=== PATIENT | female | born 1975 | race Caucasian/White ===

== ENCOUNTER 2021-08-19 02:28 | Day surgery (SDC) | payer OTHER, SELFPAY ==
[2021-08-14 15:13] VITALS: BMI 35.5
--- NOTE | 2021-08-14 15:22 | PC.NURSE ---
-Report to the Outpatient Waiting Room, entrance under the green pavilion located off [facility], at time 0615 on date 08/14/21. OR Time: 0815. - You and your visitor will be asked a series of questions to screen for COVID 19 for your protection. - Only one visitor is allowed at this time. - The patient visitor is requested to leave or wait in car when not with patient. - A mask is required within the hospital. Patients may have clear liquids (water, carbonated beverages, clear teas, apple juice) until 3 hours prior to surgery with a maximum of 20 ounces. - No food from midnight until time of surgery Take the following medications with a SIP of water the morning of surgery: ____N/A Medications to discontinue per physician N/A Date to take last dose Please no make-up, nail estonian, hairspray, perfume, deodorant, or body powder the day of surgery. No jewelry (including any body piercings) or valuables the day of surgery, leave them at home. Please take a shower or bath the night before, or the morning of, surgery with an antibacterial soap. Wear comfortable, loose fitting clothing. - Jewelry must be removed prior to entering the operating room. Rings and piercings that are not removed may be cut off. - The hospital will not accept responsibility for valuables. - Please leave all valuables, including medications, at home the day of surgery. If you are going home after surgery, a licensed ross carrier driver must drive you home. - NO public transportation without another adult. - We recommend that an adult stay with you for 24 hours following discharge. - We also recommend that you do not drive, make important decision, drink alcoholic beverages, or take any drugs that were not prescribed by your health care provider for at least 24 hours after your discharge time. Follow any additional instructions given to you from your surgeon. If you or anyone in your household have experienced Covid symptoms in the past week, please notify your surgeon or the nurse liaison at the phone number below for possible testing. Telephone instructions given to patient and asked if any additional questions and then verbalized understanding. Patient advised to call surgeon office or pre surgery nurse liaison [phone] if any additional questions.
[2021-08-19] MEDS: ACETAMINOPHEN 500 MG TABLET 1000 MG PO (06:56)
[2021-08-19] MEDS: LACTATED RINGERS 1,000 ML 30 ML IV CONT (07:07)
[2021-08-19 07:24] VITALS: BP 139/81; PULSE 75; RESP 16; TEMP 36.3; O2SAT 100
--- NOTE | 2021-08-19 07:28 | WPDHPUPDATE1 ---
History and Physical Update Update Date/Time: 08/19/21 07:28 History and Physical has been reviewed, including an updated exam of the patient. There are NO changes in the patient's condition. Risks, benefits, and alternatives have been discussed and questions answered. Patient agrees to proceed with procedure.
--- NOTE | 2021-08-19 07:29 | PM.HPGS ---
History of Present Illness History of Present Illness Consent: Risks, benefits, and alternatives have been discussed and questions answered. Patient agrees to proceed with procedure. Chief complaint: Menorrhagia Narrative: Viviana Boyle is a 46 year old female with irregular and heavy cycles with increased cramping since May. Ultrasound revealed enlarged uterus with fibroids. The largest is intramural in several are subserosal. By ultrasound none are submucosal. Recommend proceed with workup of bleeding with hysteroscopy with D&C. Risks of infection, bleeding, perforation, and fluid imbalance were reviewed. Possible pathology was discussed. Patient voices understanding and agrees to proceed. Review of Systems Review of Systems: not repeated day of surgery; patient states no changes in status PMFSH Past Medical History Medical History (Updated 08/19/21 @ 07:33 by Brie Chi MD) Depression (normal spontaneous vaginal delivery) X3 Surgical History Surgical History (Updated 08/19/21 @ 07:31 by Brie Chi MD) Status post breast reduction 1995 and 2005 Status post laparoscopic cholecystectomy Status post tubal ligation Social History Social History Smoking status: Never smoker Second hand tobacco smoke exposure: No Alcohol intake: current Drinks per week: 1 Substance use: never Living arrangements: with family Spiritual care concerns: No Meds Home Medications and Allergies Home Medications Medication Instructions Recorded Confirmed Type famotidine 40 mg tablet 40 mg PO DAILY PRN Gastric Reflux 08/14/21 08/19/21 History metoclopramide HCl 10 mg tablet 10 mg PO TID PRN Gastric Reflux 08/14/21 08/19/21 History (Reglan) topiramate 100 mg tablet 100 mg PO DAILY ASSIST WITH WEIGHT 08/14/21 08/19/21 History LOSS Allergies Allergy/AdvReac Type Severity Reaction Status Date / Time No Known Allergies Allergy Verified 08/19/21 07:23 Vital Signs Vital Signs - 24 hr 08/19/21 07:24 Temperature 97.4 F L Pulse Rate 75 Respiratory Rate 16 Blood Pressure 139/81 Pulse Oximetry 100 Oxygen Delivery Room Air Exam Const: General: healthy appearing and alert Orientation/consciousness: patient oriented x3 Resp: Effort & Inspection: normal respiratory effort Auscultation: clear to auscultation bilaterally Cardio: Rate: regular rate Rhythm: regular rhythm GI: GI Palp: Yes Soft to palpation, No Tenderness to palpation present (GI) and Yes Other GI palpation findings present (Fundus at U -2) : External Female Exam: normal external appearance Speculum Exam - Vagina: normal appearance of the vagina and normal vaginal discharge Speculum Exam - Cervix: normal appearance of the cervix Bimanual exam- vagina & uterus: consistency normal and enlarged (18 week size) Bimanual Exam- Adnexa, other: normal adnexae and No adnexal tenderness Neuro: General: patient oriented x3 Assessment and Plan Assessment and plan (1) Menorrhagia: Code(s): N92.0 - Excessive and frequent menstruation with regular cycle Status: Acute Assessment and Plan: Plan to proceed with D&C hysteroscopy
--- NOTE | 2021-08-19 07:37 | P.PNAN_ITS ---
Anes - Initial Pre Proc Eval Procedure: Operation Date: 08/19/21 08:15 Proposed Procedures p Hysteroscopy with Dilation and Curettage - Brie Chi MD Date/Time: 08/19/21 07:37 Surgeon: Brie Chi MD Pre Op Diagnosis: Menorrhagia Patient Data Age: 46 Gender: F Height: 1.5 m Weight: 82.4 kg Last Vital Signs Temp 36.3 C L 08/19/21 07:24 Pulse 75 08/19/21 07:24 Resp 16 08/19/21 07:24 BP 139/81 08/19/21 07:24 Pulse Ox 100 08/19/21 07:24 O2 Del Method Room Air 08/19/21 07:24 Allergies Allergy/AdvReac Type Severity Reaction Status Date / Time No Known Allergies Allergy Verified 08/19/21 07:23 Home Medications Medication Instructions Recorded Confirmed Type famotidine 40 mg tablet 40 mg PO DAILY PRN Gastric Reflux 08/14/21 08/19/21 History metoclopramide HCl 10 mg tablet 10 mg PO TID PRN Gastric Reflux 08/14/21 08/19/21 History (Reglan) topiramate 100 mg tablet 100 mg PO DAILY ASSIST WITH WEIGHT 08/14/21 08/19/21 History LOSS Patient hx anesthesia problems: none Family hx anesthesia problems: none Results Review: All pre-operative results and documents have been reviewed as part of the pre- operative evaluation. [facility] Past Medical History Medical History Depression GERD (gastroesophageal reflux disease) Surgical History Surgical History Status post breast reduction 1995 and 2005 Status post laparoscopic cholecystectomy Status post tubal ligation Social History Social History Smoking status: Never smoker Second hand tobacco smoke exposure: No Alcohol intake: current Drinks per week: 1 Substance use: never Living arrangements: with family Spiritual care concerns: No Anes - Eval Final PreProcedure Day of Procedure 08/19/21 07:37 Patient weight: obese Heart: regular rate and rhythm Lungs: clear to auscultation Airway: Mallampati scale class II Neurological: alert and oriented Last oral intake: >/= 8 hours ASA classification: II Emergent: no Anesthetic plan: proceed Anesthesia type and monitoring: general GIVS and standard monitoring Results Review: All pre-operative results and documents have been reviewed as part of the pre- operative evaluation. Informed Consent: The patient's anesthetic plan and its attendant risks and benefits were discussed with the patient/family/POA. Questions were solicited and answers provided to the satisfaction of the patient/family/POA.
[2021-08-19] MEDS: LIDOCAINE HCL 1% PF 30 ML VIAL INFILTRATE (08:35)
--- NOTE | 2021-08-19 08:36 | P.OP_ITS ---
Procedure Note - Detailed Date of Procedure 08/19/21 Pre-op Diagnosis Menorrhagia Post-op Diagnosis Same Procedure Performed D&C hysteroscopy Surgeon Brie Chi MD Anesthesia MAC and Local Findings Uterus sounds to 12cm and appears grossly normal. There is some shaggy secretory appearing endometrium at the utero cervical junction Description of Procedure The patient was taken to the operating room and placed under anesthesia dorsal lithotomy position. She was prepped and draped in usual sterile fashion. [place] speculum was placed in the vagina and the cervix is grasped on the anterior lip with a tenaculum. The cervix is serially injected in each quadrant with 1% lidocaine. The uterus is sounded to 12cm. The cervix is serially dilated with Hegar to an 8. The diagnostic hysteroscope was placed with the above-stated findings. The hysteroscope was removed and the medium sharp curette used to curette the endometrium until a good uterine cry was noted in all areas. The instruments are removed. Patient is awakened from anesthesia and taken to recovery in stable condition. Sponge, needle, and instrument counts are correct per the OR staff. Estimated Blood Loss 5 Drains No Packing No Pathology Yes (Endometrial curettings) Complications No immediate complications Condition Stable Disposition PACU
[2021-08-19 08:39] VITALS: BP 136/86; PULSE 85; RESP 16; O2SAT 100
[2021-08-19 09:00] VITALS: BP 139/84; PULSE 75; RESP 16; O2SAT 97
[2021-08-19] MEDS: oxyCODONE HCL (*CRX) 5 MG TAB IR PO (09:13)
[2021-08-19 09:30] VITALS: BP 145/81; PULSE 64; RESP 16
[2021-08-19 09:55] VITALS: BP 145/79; PULSE 67; RESP 16
== END 2021-08-19 10:04 | disposition home or self-care (01) ==
PROVIDERS: Visit Provider Obstetrics & Gynecology Gynecology
PROC: 0U5B8ZZ Destruction of Endometrium, Via Natural or Artificial Opening Endoscopic (ICD-10-PCS; CPT 58563; principal; 2021-08-19 08:15)
DX: N92.0 Excessive and frequent menstruation with regular cycle (principal)
CPT/HCPCS: 58558; 88305; A9270; J1885; J2250; J2704; J3010; J7120

== ENCOUNTER 2022-01-20 11:10 | Inpatient (IN) | payer OTHER, SELFPAY ==
[2022-01-15 15:09] VITALS: BMI 37.5
--- NOTE | 2022-01-15 15:14 | PC.NURSE ---
Report to the Outpatient Waiting Room, entrance under the green pavilion located off [facility], at time 0600 on date 01/20/22. Planned Procedure Time: 0730. Time changes happen often and if your time is changed the preop area will call you the afternoon before. - You and your visitor will be asked to self-screen and do not enter if you have any COVID symptoms. - We encourage only one visitor and NO visitors under age 16 are allowed at this time. Your visitor will receive communication by the phone number that is given day of service. - The patient visitor is requested to social distance or may leave the building when not with patient due to restrictions. - A mask is OPTIONAL within the hospital. Patients may have clear liquids (water, carbonated beverages, clear teas, apple juice) until 3 hours prior to surgery with a maximum of 20 ounces. - No food from midnight until time of surgery Take the following medications with a SIP of water the morning of surgery: LAMOTRIGINE, CYMBALTA, REGLAN IF NEEDED Medications to discontinue per physician: N/A Date to take last dose: N/A Please no make-up, nail luxembourgish, hairspray, perfume, deodorant, or body powder the day of surgery. No jewelry (including any body piercings) or valuables the day of surgery, leave them at home. Please take a shower or bath the night before, or the morning of, surgery with an antibacterial soap. Wear comfortable, loose fitting clothing. - Jewelry must be removed prior to entering the operating room. Rings and piercings that are not removed may be cut off. - The hospital will not accept responsibility for valuables. - Please leave all valuables, including medications, at home the day of surgery. If you are going home after surgery, a licensed sales route driver must drive you home. - NO public transportation without another adult. - We recommend that an adult stay with you for 24 hours following discharge. - We also recommend that you do not drive, make important decision, drink alcoholic beverages, or take any drugs that were not prescribed by your health care provider for at least 24 hours after your discharge time. Follow any additional instructions given to you from your surgeon. If you or anyone in your household have experienced Covid symptoms in the past week, please notify your surgeon or the nurse liaison at the phone number below for possible testing. Telephone instructions given to PT - AGNES ABARCA and asked if any additional questions and then verbalized understanding. Patient advised to call surgeon office or pre surgery nurse liaison [phone] if any additional questions.
[2022-01-20] VITALS (17 sets, daily range): BP systolic 116–151; BP diastolic 72–95; PULSE 87–109; RESP 12–19; TEMP 36.5–37.2; O2SAT 93–100
[2022-01-20] MEDS: LACTATED RINGERS 1,000 ML 30 ML IV CONT ×2 (07:00→09:21)
[2022-01-20] MEDS: KETOROLAC 15 MG/ML VIAL (*BKC) IV PUSH (07:06)
[2022-01-20] MEDS: ACETAMINOPHEN 500 MG TABLET 1000 MG PO ×2 (07:06→15:39)
--- NOTE | 2022-01-20 07:14 | WPDHPUPDATE1 ---
History and Physical Update Update Date/Time: 01/20/22 07:14 History and Physical has been reviewed, including an updated exam of the patient. There are NO changes in the patient's condition. Risks, benefits, and alternatives have been discussed and questions answered. Patient agrees to proceed with procedure.
--- NOTE | 2022-01-20 07:14 | PM.HPGS ---
History of Present Illness History of Present Illness Consent: Risks, benefits, and alternatives have been discussed and questions answered. Patient agrees to proceed with procedure. Chief complaint: menorrhagia, enlarged uterus Narrative: Viviana Boyle is a 46 year old female with menorrhagia and enlarged fibroid uterus. D&C hysteroscopy was benign. Due to the large size of the uterus the patient has elected to proceed with hysterectomy. The uterus is at U -2 and is very globular filling the entire pelvis. Decision was made to proceed with total abdominal hysterectomy as well as bilateral salpingectomy. Risks of infection, bleeding, injury to internal organs ( bowel, bladder, ureters ), deep vein thrombosis, and general anesthesia were reviewed. Patient voices understanding and agrees to proceed. Review of Systems Gastrointestinal: Gastrointestinal: Reports constipation Genitourinary: Genitourinary: Reports menorrhagia, Reports dyspareunia and Reports urinary incontinence ( occasional stress incontinence) Comments: Pelvic pressure Musculoskeletal: Musculoskeletal: Reports back pain PMFSH Past Medical History Medical History (Updated 01/20/22 @ 07:22 by Brie Chi MD) Depression PTSD GERD (gastroesophageal reflux disease) (normal spontaneous vaginal delivery) x3 Surgical History Surgical History (Updated 01/20/22 @ 07:18 by Brie Chi MD) History of abdominoplasty History of hysteroscopy Status post breast reduction 1995 and 2005 Status post laparoscopic cholecystectomy Status post tubal ligation Social History Social History Smoking status: Never smoker Second hand tobacco smoke exposure: No Alcohol intake: current Drinks per week: 1 Alcohol use details: RARE Substance use: never Substance use type: does not use Living arrangements: with family Spiritual care concerns: No Meds Home Medications and Allergies Home Medications Medication Instructions Recorded Confirmed Type famotidine 40 mg tablet 40 mg PO DAILY PRN Gastric Reflux 08/14/21 01/15/22 History metoclopramide HCl 10 mg tablet 10 mg PO TID PRN Gastric Reflux 08/14/21 01/15/22 History (Reglan) duloxetine 60 mg capsule,delayed 60 mg PO DAILY 01/15/22 01/15/22 History release lamotrigine 25 mg tablet 25 mg PO DAILY 01/15/22 01/15/22 History norethindrone 1 mg-ethinyl 1 tablet PO DAILY 01/15/22 01/15/22 History estradiol 20 mcg (24)-iron 75 mg (4) tablet (Etelvina 24 Fe) trazodone 50 mg tablet 50 mg PO HS PRN Insomnia 01/15/22 01/15/22 History Allergies Allergy/AdvReac Type Severity Reaction Status Date / Time No Known Allergies Allergy Verified 01/15/22 15:07 Exam Const: General: healthy appearing and alert Orientation/consciousness: patient oriented x3 Resp: Effort & Inspection: normal respiratory effort GI: GI Palp: Yes Soft to palpation, No Tenderness to palpation present (GI) and No Palpable mass present : External Female Exam: normal external appearance Speculum Exam - Vagina: normal appearance of the vagina and normal vaginal discharge Speculum Exam - Cervix: normal appearance of the cervix Bimanual exam- vagina & uterus: enlarged ( approximately 18 week size at U -2) Bimanual Exam- Adnexa, other: normal adnexae and No adnexal tenderness Neuro: General: patient oriented x3 Assessment and Plan Assessment and plan (1) Menorrhagia: Code(s): N92.0 - Excessive and frequent menstruation with regular cycle Status: Acute Assessment and Plan: plan is to proceed with JABARI BS (2) Fibroids: Code(s): D21.9 - Benign neoplasm of connective and other soft tissue, unspecified Status: Acute
--- NOTE | 2022-01-20 07:19 | WPDANESEPPF ---
Anes - Initial Pre Proc Eval Procedure: Operation Date: 01/20/22 07:30 Proposed Procedures p Total Abdominal Hysterectomy with Bilateral Salpingectomy - Brie Chi MD Date/Time: 01/20/22 07:19 Surgeon: Brie Chi MD Pre Op Diagnosis: menorrhagia, enlarged uterus Patient Data Age: 46 Gender: F Height: 1.5 m Weight: 84.37 kg Allergies Allergy/AdvReac Type Severity Reaction Status Date / Time No Known Allergies Allergy Verified 01/15/22 15:07 Home Medications Medication Instructions Recorded Confirmed Type famotidine 40 mg tablet 40 mg PO DAILY PRN Gastric Reflux 08/14/21 01/15/22 History metoclopramide HCl 10 mg tablet 10 mg PO TID PRN Gastric Reflux 08/14/21 01/15/22 History (Reglan) duloxetine 60 mg capsule,delayed 60 mg PO DAILY 01/15/22 01/15/22 History release lamotrigine 25 mg tablet 25 mg PO DAILY 01/15/22 01/15/22 History norethindrone 1 mg-ethinyl 1 tablet PO DAILY 01/15/22 01/15/22 History estradiol 20 mcg (24)-iron 75 mg (4) tablet (Etelvina 24 Fe) trazodone 50 mg tablet 50 mg PO HS PRN Insomnia 01/15/22 01/15/22 History Laboratory Tests 01/20/22 07:07 Hgb Pending Hct Pending Patient hx anesthesia problems: none Family hx anesthesia problems: none Results Review: All pre-operative results and documents have been reviewed as part of the pre-operative evaluation. [facility] Past Medical History Medical History Depression GERD (gastroesophageal reflux disease) (normal spontaneous vaginal delivery) x3 Surgical History Surgical History History of abdominoplasty History of hysteroscopy Status post breast reduction 1995 and 2005 Status post laparoscopic cholecystectomy Status post tubal ligation Social History Social History Smoking status: Never smoker Second hand tobacco smoke exposure: No Alcohol intake: current Drinks per week: 1 Alcohol use details: RARE Substance use: never Substance use type: does not use Living arrangements: with family Spiritual care concerns: No Anes - Eval Final PreProcedure Day of Procedure 01/20/22 07:19 Patient weight: obese Heart: regular rate and rhythm Lungs: clear to auscultation Airway: Mallampati scale class II Neurological: alert and oriented Last oral intake: >/= 8 hours ASA classification: III Emergent: no Anesthetic plan: proceed Anesthesia type and monitoring: general ETT and standard monitoring Results Review: All pre-operative results and documents have been reviewed as part of the pre-operative evaluation. Informed Consent: The patient's anesthetic plan and its attendant risks and benefits were discussed with the patient/family/POA. Questions were solicited and answers provided to the satisfaction of the patient/family/POA.
[2022-01-20 07:20] LABS: Hematocrit 40.3 % (37.0-47.0); Hemoglobin 12.8 g/dL (12.0-15.0)
[2022-01-20] MEDS: ceFAZolin 2 GM/D5W 50 ML 2 GM/50 ML BAG IVPB (07:26)
--- NOTE | 2022-01-20 08:59 | W.PM.PROC2 ---
Procedure Note - Detailed Date of Procedure 01/20/22 Pre-op Diagnosis menorrhagia, enlarged uterus Post-op Diagnosis Same Procedure Performed Total abdominal hysterectomy with bilateral salpingectomy Surgeon Brie Chi MD Anesthesia General Findings enlarged fibroid uterus to 2cm below the umbilicus; normal-appearing tubes and of Description of Procedure The patient is taken to the operating room and placed under anesthesia in the dorsal supine position. She was prepped and draped in the usual sterile fashion. A Pfannenstiel skin incision was made with a scalpel and carried down to the underlying layer of fascia which was nicked in the midline and extended laterally. Ochsner was used to tent the fascia which was then dissected off using sharp and blunt dissection. The peritoneum was tented and entered with a Peon. The incision is extended with blunt traction. The bowel was packed away using moist laparotomy sponges and the Rufina is placed. The uterus is grasped on the cornua with large Peons. The round ligaments were doubly ligated with 0 Vicryl. The round ligament is incised and the anterior leaf of the broad ligament incised meeting in the midline. The utero-ovarian ligament is isolated by creating a window in the posterior leaf of the broad ligament. The tube is brought up with a Clarkridge to the proximal side and the pedicle doubly clamped with Z clamps, transected, and ligated with 0 Vicryl. The uterine vessels are skeletonized, clamped with Z clamps, transected, and suture ligated with 0 Vicryl. The cardinal and uterosacral ligaments are serially clamped, transected, and suture ligated with 0 Vicryl. The uterosacral ligaments were tagged for future use. The vaginal cuff is incised in the midline with a scalpel. The vaginal cuff was grasped with an Allis clamp anteriorly and the specimen amputated using Dl scissors and grasping the vaginal cuff anteriorly and posteriorly as the amputation is occurring. The vaginal cuff was then closed using 0 Vicryl in a running locked fashion tying each angle to the ipsilateral uterosacral ligaments. The left ovarian peritoneum is noted to be oozing and this is suture ligated with 0 Vicryl in a running fashion. Good hemostasis was then noted. The pelvis is irrigated and all pedicles and the vaginal cuff were noted to be hemostatic. The sponges and instruments are then removed. The fascia was closed using 0 Vicryl in a running fashion. Subcutaneous tissues were irrigated and made hemostatic using Bovie cautery. Due to her prior abdominal plasty there is tension on the skin therefore the subcutaneous tissues are closed with 3-0 plain in a running fashion. Skin is closed using 4-0 Monocryl in a subcuticular fashion. Dermaflex was placed over the incision. Sponge, needle, and instrument counts are correct per the OR staff. The patient is awakened from anesthesia and taken recovery in stable condition. Estimated Blood Loss 150 Drains Yes ( Faye catheter) Packing No Pathology Yes ( uterus into) Complications No immediate complications Condition Stable Disposition PACU
--- NOTE | 2022-01-20 09:06 | PM.DS ---
DS: Admitting Diagnosis Discharge Date 01/22/22 Admitting Diagnosis menorrhagia with enlarged fibroid uterus DS: Discharge Diagnosis Discharge Diagnosis (1) Fibroids: Code(s): D21.9 - Benign neoplasm of connective and other soft tissue, unspecified Status: Acute (2) Menorrhagia: Code(s): N92.0 - Excessive and frequent menstruation with regular cycle Status: Acute (3) S/P JABARI (total abdominal hysterectomy): Code(s): Z90.710 - Acquired absence of both cervix and uterus Status: Acute DS: Summary Hospital Course Hospital Course: At the time of discharge the patient is tolerating a regular diet, voiding, and ambulating. Status at Discharge Functional status at discharge: independent ambulation Overall status at discharge: patient is progressing back to baseline Time Spent with Patient Time attestation: Total time spent providing and/or coordinating discharge services: DS: Data Data Completed and Pending Pending studies at discharge: Pending at discharge 01/20/22 08:55 Surgical [PTH] Routine Labs on day of discharge: Labs from last 24 hours 01/20/22 01/20/22 07:07 07:07 Hgb 12.8 Hct 40.3 Blood Type Pending Antibody Screen Pending Discharge Plan Discharge Attending physician on discharge: Brie Chi Discharging Clinician: Brei Chi Anticipated Discharge Date/Time: 01/22/22 07:49 Patient Disposition: Home, Self-Care Activity: may shower, may drive after 2 weeks and pelvic rest Diet: regular Wound Care Instructions: incision open to air Patient Instructions: Hysterectomy (DC) Stand Alone Forms: General Discharge Instructions Follow-up/Referrals: Brie Chi MD [Physician] - Keep Reg. Scheduled Appt. Discharge Medications: New hydrocodone-acetaminophen 5-325 mg tablet 1 tablet PO Q4H PRN (Reason: pain) Qty: 20 0RF Continued trazodone 50 mg tablet 50 mg PO HS PRN (Reason: Insomnia) lamotrigine 25 mg tablet 25 mg PO DAILY duloxetine 60 mg capsule,delayed release(DR/EC) 60 mg PO DAILY famotidine 40 mg tablet 40 mg PO DAILY PRN (Reason: Gastric Reflux) metoclopramide HCl [Reglan] 10 mg tablet 10 mg PO TID PRN (Reason: Gastric Reflux) Discontinued Etelvina mg-20 mcg (24)/75 mg (4) tablet 1 tablet PO DAILY Date of admission: 01/20/22 11:10 Primary Care Provider: ThaoKala Admitting Provider: Brie Chi Attending physician on admission: Brie Chi Condition: Stable
[2022-01-20] MEDS: fentaNYL CITRATE INJ (*CRX) 100 MCG/2 ML VIAL 25 MCG IV PUSH ×6 (09:44→10:19)
--- NOTE | 2022-01-20 10:02 | SUR.PHASEI ---
1000: Simple mask removed.
[2022-01-20] MEDS: HYDROmorphone HCL INJ (*CRX) 1 MG/ML SYR IV PUSH (10:39)
--- NOTE | 2022-01-20 11:20 | PC.NURSE ---
This patient, Viviana Boyle, was received from PACU on 01/20/22 at 1120. Patient/family oriented to unit policies and routines
[2022-01-20] MEDS: DEXTROSE 5%/LACTATED RINGERS 1,000 ML 125 ML IV CONT ×2 (11:53→20:21)
[2022-01-20] MEDS: KETOROLAC 30 MG/ML VIAL (*BKC) IV PUSH ×2 (11:53→20:28)
[2022-01-20] MEDS: FENTANYL 600MCG/NS30MLPCA(*CRX 600 MCG/30 ML PCA.VIAL IV CONT (12:06)
[2022-01-20] MEDS: ONDANSETRON INJ 4 MG/2 ML VIAL IV PUSH (17:02)
[2022-01-21] VITALS: BP 141/86; PULSE 89; RESP 16; RESP 18; TEMP 36.9; O2SAT 96
[2022-01-21 05:30] VITALS: BP 148/95; PULSE 90; RESP 16; TEMP 37; O2SAT 95
[2022-01-21 07:30] VITALS: RESP 18; O2SAT 100
--- NOTE | 2022-01-21 07:36 | WPDANESPN ---
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 Other Findings: nausea
--- NOTE | 2022-01-21 07:44 | PM.GYNPNOP ---
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 Postoperative Procedures: Procedures Operation Date: 01/20/22 07:30 Actual Procedure Side Surgeon p Total Abdominal Hysterectomy with Bilateral Salpingectomy Bilateral Brie Chi MD Postoperative day: 1 Postoperative status: doing well Postoperative plan: routine post-op care Time Spent With Patient Time: Total time spent is greater than 50% in coordination of care (as documented) at patient's floor/unit and/or counseling patient: Time with patient: less than 15 minutes FIRST CALENDER WORKER- PN:Subj Post-Op Subjective Date/time seen: 01/21/22 07:44 Subjective: patient reports feeling better and pain is well controlled Exam Narrative: inc c/d/i abdomen soft, nt FIRST CALENDER WORKER - PN: Obj Data Vital Signs Vital Signs: Vital Signs - 24 hr 01/20/22 09:21 01/20/22 09:35 01/20/22 09:50 Temperature 98.9 F Pulse Rate 109 H 102 H 99 Respiratory Rate 17 19 15 Blood Pressure 121/72 126/85 126/84 Pulse Oximetry 100 95 98 Oxygen Delivery Simple Face Mask Simple Face Mask Room Air Oxygen Flow Rate 6 8 01/20/22 10:05 01/20/22 10:20 01/20/22 10:35 Temperature Pulse Rate 100 103 H 104 H Respiratory Rate 16 16 16 Blood Pressure 139/90 136/93 H 131/95 H Pulse Oximetry 94 93 99 Oxygen Delivery Nasal Cannula Nasal Cannula Nasal Cannula Oxygen Flow Rate 2 2 2 01/20/22 10:50 01/20/22 11:05 01/20/22 11:20 Temperature 98.1 F Pulse Rate 104 H 108 H 108 H Respiratory Rate 17 19 16 Blood Pressure 116/77 132/80 140/81 Pulse Oximetry 99 100 96 Oxygen Delivery Nasal Cannula Nasal Cannula Oxygen Flow Rate 2 2 01/20/22 12:06 01/20/22 15:39 01/20/22 16:00 Temperature 98.1 F 97.7 F Pulse Rate 87 Respiratory Rate 12 18 Blood Pressure 148/91 H Pulse Oximetry 99 96 Oxygen Delivery Oxygen Flow Rate 01/20/22 13:00 01/20/22 14:00 01/20/22 15:00 Temperature Pulse Rate Respiratory Rate 16 18 16 Blood Pressure Pulse Oximetry 96 98 97 Oxygen Delivery Oxygen Flow Rate 01/20/22 16:00 01/20/22 21:08 01/21/22 00:00 Temperature 98.4 F Pulse Rate 90 89 Respiratory Rate 18 18 18 Blood Pressure 151/92 H Pulse Oximetry 98 97 96 Oxygen Delivery Nasal Cannula Oxygen Flow Rate 2 01/21/22 00:00 01/21/22 00:00 01/21/22 00:00 Temperature 98.5 F 98.5 F Pulse Rate 89 89 89 Respiratory Rate 16 16 16 Blood Pressure 141/86 H 141/86 H Pulse Oximetry 96 96 96 Oxygen Delivery Nasal Cannula Oxygen Flow Rate 2 01/21/22 05:30 01/21/22 05:30 Temperature 98.6 F Pulse Rate 90 90 Respiratory Rate 16 16 Blood Pressure 148/95 H Pulse Oximetry 95 95 Oxygen Delivery Nasal Cannula Oxygen Flow Rate 2 Intake/Output Intake/Output: Intake & Output 01/19/22 01/19/22 01/20/22 01/21/22 00:59 23:59 23:59 23:59 Intake Total 2190 440 Output Total 850 3275 Balance 1340 -9685 Meds/Results Medications: Active Medications Generic Name Dose Route Start Last Admin Trade Name Freq PRN Reason Stop Dose Admin Acetaminophen 1,000 mg 01/20/22 11:10 01/20/22 15:39 Acetaminophen 500 Mg Tablet PO 1,000 mg Q6H PRN Administration Mild Pain (1-3) or Fever Hydrocodone Bitart/Acetaminophen 1 tab 01/20/22 11:10 Hydrocodone/Acetaminophen (*Crx) 10-325 Mg Tablet PO Q3H PRN Pain Rated 6 or Greater Hydrocodone Bitart/Acetaminophen 1 tab 01/20/22 11:10 Hydrocodone/Acetaminophen (*Crx) 5-325 Mg Tablet PO Q3H PRN Pain Rated 5 or Less Duloxetine HCl 60 mg 01/21/22 09:00 Duloxetine Hcl 60 Mg Capsule.Dr PO DAILY MICHELLE Famotidine 40 mg 01/20/22 11:10 Famotidine 20 Mg Tablet PO DAILY PRN Gastric Reflux Dextrose/Lactated Ringer's 1,000 mls @ 125 mls/hr 01/20/22 11:10 01/20/22 20:21 Dextrose 5%/Lactated Ringers IV CONT 125 mls/hr .Q8H MICHELLE Administration Fentanyl Citrate 600 mcg in 30 mls @ 0.5 mls/hr 01/20/22 11:10 01/20/22 16:00 Fentanyl 600 Mcg/Ns 30 Ml Support Representative IV CONT 20 mcg/hr PRN PRN
[2022-01-21 07:50] VITALS: BP 141/84; PULSE 76; RESP 18; TEMP 37.6; O2SAT 100
[2022-01-21 07:53] LABS: Basophils Percent Auto 0.2 % (0.2-1.2); Eosinophils Percent Auto 0.1 % (0-4.4); Hematocrit 37.4 % (37.0-47.0); Hemoglobin 12.2 g/dL (12.0-15.0); Immature Granulocyte Absolute 0.04 K/mm3 (0.00-0.031); Immature Granulocyte Percent A 0.3 % (0-0.5); Lymphocytes Absolute Auto 2.39 K/mm3 (0.9-3.2); Mean Corpuscular HGB Conc 32.6 g/dl (32-36); Mean Corpuscular Hemoglobin 28.2 pg (26-34); Mean Corpuscular Volume 86.6 fl (80-100); Mean Platelet Volume 9.3 fl (7.4-10.4); Monocytes Absolute Auto 1.1 K/mm3 (0.1-0.6); Monocytes Percent Auto 8.6 % (2.6-8.5); Neutrophils Absolute Auto 9.7 K/mm3 (1.3-6.7); Neutrophils Percent Auto 72.8 % (45.5-73.1); Platelet Count Result 279 k/mm3 (150-375); Red Blood Count 4.32 M/mm3 (4.2-5.4); Red Cell Distribution Width 14.1 % (11.5-14.5); White Blood Count 13.3 K/mm3 (4.5-10.0)
[2022-01-21 09:06] VITALS: RESP 18; O2SAT 100
[2022-01-21] MEDS: IBUPROFEN 600 MG TABLET PO ×3 (09:10→22:20)
[2022-01-21] MEDS: HYDROcodone/acetaminophen (*CRX) 5-325 MG TABLET 1 TAB PO ×3 (09:11→22:20)
[2022-01-21] MEDS: DULoxetine HCL 60 MG CAPSULE.DR PO (09:12)
[2022-01-21] MEDS: lamoTRIgine 25 MG TABLET PO (09:12)
[2022-01-21] MEDS: SIMETHICONE 80 MG TAB.CHEW PO ×3 (09:12→22:22)
[2022-01-21] MEDS: HYDROcodone/acetaminophen (*CRX) 10-325 MG TABLET 1 TAB PO ×2 (12:14→19:11)
[2022-01-21 19:15] VITALS: BP 138/88; PULSE 88; RESP 18; TEMP 36.7; O2SAT 97
[2022-01-22] MEDS: HYDROcodone/acetaminophen (*CRX) 10-325 MG TABLET 1 TAB PO ×2 (01:39→08:56)
[2022-01-22 01:40] VITALS: BP 130/88; PULSE 90; RESP 14; TEMP 36.7; O2SAT 96
[2022-01-22] MEDS: HYDROcodone/acetaminophen (*CRX) 5-325 MG TABLET 1 TAB PO (04:39)
[2022-01-22] MEDS: IBUPROFEN 600 MG TABLET PO (04:39)
[2022-01-22 04:40] VITALS: PULSE 90; RESP 16; O2SAT 95
[2022-01-22 04:46] VITALS: BP 125/83; PULSE 90; RESP 16; TEMP 36.7; O2SAT 95
[2022-01-22 07:34] VITALS: BP 121/83; PULSE 88; TEMP 36.6; O2SAT 97
--- NOTE | 2022-01-22 07:48 | PM.GYNPNOP ---
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 Postoperative Procedures: Procedures Operation Date: 01/20/22 07:30 Actual Procedure Side Surgeon p Total Abdominal Hysterectomy with Bilateral Salpingectomy Bilateral Brie Chi MD Postoperative day: 2 Postoperative status: doing well Postoperative plan: routine post-op care and discharge Time Spent With Patient Time: Total time spent is greater than 50% in coordination of care (as documented) at patient's floor/unit and/or counseling patient: Time with patient: less than 15 minutes MANAGER PERFORMANCE- PN:Subj Post-Op Subjective Date/time seen: 01/22/22 07:48 Subjective: patient reports feeling better, pain is well controlled and patient is tolerating oral intake Exam Narrative: inc c/d/i abdomen soft, nt, nd MANAGER PERFORMANCE - PN: Obj Data Vital Signs Vital Signs: Vital Signs - 24 hr 01/21/22 07:50 01/21/22 09:06 01/21/22 09:13 Temperature 99.7 F H Pulse Rate 76 Respiratory Rate 18 18 Blood Pressure 141/84 H Pulse Oximetry 100 100 Oxygen Delivery Room Air 01/21/22 19:15 01/21/22 19:15 01/21/22 19:15 Temperature 98.0 F 98.0 F Pulse Rate 88 88 88 Respiratory Rate 18 18 18 Blood Pressure 138/88 138/88 Pulse Oximetry 97 97 97 Oxygen Delivery Room Air 01/22/22 01:40 01/22/22 01:40 01/22/22 04:46 Temperature 98.0 F 98.0 F Pulse Rate 90 90 90 Respiratory Rate 14 14 16 Blood Pressure 130/88 125/83 Pulse Oximetry 96 96 95 Oxygen Delivery Room Air 01/22/22 04:40 Temperature Pulse Rate 90 Respiratory Rate 16 Blood Pressure Pulse Oximetry 95 Oxygen Delivery Room Air Intake/Output Intake/Output: Intake & Output 01/19/22 01/20/22 01/21/22 01/22/22 23:59 23:59 23:59 23:59 Intake Total 2190 1619 Output Total 356 5495 Balance 1340 -1826 Meds/Results Medications: Active Medications Generic Name Dose Route Start Last Admin Trade Name Freq PRN Reason Stop Dose Admin Acetaminophen 1,000 mg 01/20/22 11:10 01/20/22 15:39 Acetaminophen 500 Mg Tablet PO 1,000 mg Q6H PRN Administration Mild Pain (1-3) or Fever Hydrocodone Bitart/Acetaminophen 1 tab 01/20/22 11:10 01/22/22 01:39 Hydrocodone/Acetaminophen (*Crx) 10-325 Mg Tablet PO 1 tab Q3H PRN Administration Pain Rated 6 or Greater Hydrocodone Bitart/Acetaminophen 1 tab 01/20/22 11:10 01/22/22 04:39 Hydrocodone/Acetaminophen (*Crx) 5-325 Mg Tablet PO 1 tab Q3H PRN Administration Pain Rated 5 or Less Duloxetine HCl 60 mg 01/21/22 09:00 01/21/22 09:12 Duloxetine Hcl 60 Mg Capsule.Dr PO 60 mg DAILY MICHELLE Administration Famotidine 40 mg 01/20/22 11:10 Famotidine 20 Mg Tablet PO DAILY PRN Gastric Reflux Ibuprofen 600 mg 01/20/22 11:10 01/22/22 04:39 Ibuprofen 600 Mg Tablet PO 600 mg Q6H PRN Administration Cramping Ketorolac Tromethamine 30 mg 01/20/22 11:10 01/20/22 20:28 Ketorolac 30 Mg/Ml Vial (*Bkc) IV PUSH 01/25/22 11:09 30 mg Q6H PRN Administration Pain Rated 4-6 Lamotrigine 25 mg 01/21/22 09:00 01/21/22 09:12 Lamotrigine 25 Mg Tablet PO 25 mg DAILY MICHELLE Administration Metoclopramide HCl 10 mg 01/20/22 11:10 Metoclopramide Hcl 10 Mg Tablet PO TID PRN Gastric Reflux Naloxone HCl 0.1 mg 01/20/22 11:10 Naloxone Hcl 0.4 Mg/Ml Vial IV PUSH Q2M PRN Respiratory rate less than 10 Ondansetron HCl 4 mg 01/20/22 11:10 01/20/22 17:02 Ondansetron Inj 4 Mg/2 Ml Vial IV PUSH 4 mg Q6H PRN Administration Nausea Simethicone 80 mg 01/20/22 11:10 01/21/22 22:22 Simethicone 80 Mg Tab.Chew PO 80 mg Q2H PRN Administration Gas Trazodone HCl 50 mg 01/20/22 11:10 Trazodone Hcl 50 Mg Tablet PO HS PRN Insomnia Labs CBC & Chem 7: 01/21/22 07:43 Labs: Laboratory Results - last 24 hr 01/21/22 07:43 WBC 13.3 H RBC 4.32 Hgb 12.2 Hct 37.4 MCV 86.6 MCH 28.2 MCHC 32.6 RDW 14.1 Plt Count 279 MP
[2022-01-22] MEDS: lamoTRIgine 25 MG TABLET PO (08:56)
[2022-01-22] MEDS: DULoxetine HCL 60 MG CAPSULE.DR PO (08:56)
[2022-01-22] MEDS: SIMETHICONE 80 MG TAB.CHEW PO (08:57)
[2022-01-22 09:11] VITALS: PULSE 88; RESP 16; O2SAT 97
--- NOTE | 2022-01-22 09:39 | PC.NURSE ---
On 01/22/22, the student, Jhonny Mazariegos, provided care and completed [facility] documentation on this patient. I have reviewed the student's documentation and agree with the findings.
== END 2022-01-22 10:50 | disposition home or self-care (01) | DRG 743 ==
LOC: ANHOB2 11:17 → ANHLDR 01-21 05:47 → ANHOB2 01-21 05:53
PROVIDERS: Admitting Provider Obstetrics & Gynecology Gynecology; PCP Family Medicine; Visit Provider Obstetrics & Gynecology Gynecology
PROC: 0UT94ZZ Resection of Uterus, Percutaneous Endoscopic Approach (ICD-10-PCS; principal; 2022-01-20 07:30)
DX: D25.9 Leiomyoma of uterus, unspecified (principal); N92.0 Excessive and frequent menstruation with regular cycle; F43.10 Post-traumatic stress disorder, unspecified; F32.A Depression, unspecified; K21.9 Gastro-esophageal reflux disease without esophagitis; E66.9 Obesity, unspecified; Z68.38 Body mass index [BMI] 38.0-38.9, adult; Z90.49 Acquired absence of other specified parts of digestive tract
CPT/HCPCS: 36415; 85014; 85018; 85025; 86850; 86900; 86901; 88307; A9270; J0690; J1100; J1170; J1885; J2250; J2405; J2704; J2710; J3010; J7120; J7121